=== PATIENT | female | born 1985 | race African-American/Black ===

== ENCOUNTER 2020-12-12 14:42 | Emergency (ER) | payer OTHER ==
[~2020-12-12] VITALS: Ht 170.2 cm; Wt 97.5 kg
[2020-12-12] MEDS ORDERED: ZITHROMAX250 MG PO (15:23)
== END 2020-12-12 15:32 | disposition home or self-care (01) ==
LOC: ER 15:10
DX: U07.1 COVID-19 (principal)
CPT/HCPCS: 99282